=== PATIENT | female | born 1950 | race Hispanic/Latino ===

== ENCOUNTER 2022-01-10 01:10 | Emergency (ER) | payer SELFPAY ==
[2022-01-10] MEDS ORDERED: MORPHINE 4 MG/ML SYR ONE (04:19)
[2022-01-10] MEDS ORDERED: HYDROCODONE/APAP 7.5/325 MG TAB ONE (04:19)
[2022-01-10] MEDS ORDERED: NA CHLORIDE 0.9% 1,000 ML ONE (07:40)
[2022-01-10] MEDS ORDERED: ETOMIDATE 20 MG/10 ML VIAL IV ONE (07:57)
[2022-01-10] MEDS ORDERED: MIDAZOLAM HCL 2 MG/2 ML INJ ONE (07:57)
[2022-01-10] MEDS ORDERED: ONDANSETRON 4 MG/2 ML VIAL ONE (08:40)
--- NOTE | 2022-01-10 09:07 | ER ---
Nurse's Notes [facility] Name: Salma Taylor Age: 71 yrs Sex: Female : 1950 Arrival Date: 01/10/2022 Time: 01:14 Bed 2 Private MD: Diagnosis: Fall on same level, unspecified;Colles' fracture of right radius, initial encounter for closed fracture;Displaced transverse fracture of shaft of left ulna, initial encounter for closed fracture Presentation: 01/10 06:57 Chief complaint: Patient states: "I fell and hurt my left wrist". Coronavirus screen: vc1 Vaccine status: Patient reports receiving the 2nd dose of the covid vaccine. Ebola Screen: No symptoms or risks identified at this time. Initial Sepsis Screen: Does the patient meet any 2 criteria? No. Patient's initial sepsis screen is negative. Does the patient have a suspected source of infection? No. Patient's initial sepsis screen is negative. Risk Assessment: Do you want to hurt yourself or someone else? Patient reports no desire to harm self or others. Onset of symptoms was January 09, 2022. 06:57 Method Of Arrival: Ambulatory vc1 06:57 Acuity: DAVID 3 vc1 Triage Assessment: 03:00 General: Appears in no apparent distress. uncomfortable, Behavior is calm, cooperative, vc1 appropriate for age. Pain: Complains of pain in left wrist. Neuro: Level of Consciousness is awake, alert, obeys commands, Oriented to person, place, time, situation. Historical: - Allergies: 08:03 PENICILLINS; vg1 - PMHx: 08:06 Anxiety; Depressive disorder; vg1 Screenin:25 Abuse screen: Denies threats or abuse. Nutritional screening: No deficits noted. vg1 Tuberculosis screening: No symptoms or risk factors identified. Fall Risk Fall in past 12 months (25 points). No secondary diagnosis (0 pts). IV access (20 points). Ambulatory Aid- None/Bed Rest/Nurse Assist (0 pts). Gait- Normal/Bed Rest/Wheelchair (0 pts) Mental Status- Oriented to own ability (0 pts). Total Hopson Fall Scale indicates No Risk (0-24 pts). Assessment: 07:48 General: Appears in no apparent distress. uncomfortable, Behavior is calm, cooperative. vg1 Pain: Complains of pain in left wrist Pain currently is 10 out of 10 on a pain scale. Pain began around 0130. Neuro: Level of Consciousness is awake, alert, obeys commands, Oriented to person, place, time, situation. Cardiovascular: Capillary refill < 3 seconds in bilateral fingers. Respiratory: Airway is patent Respiratory effort is even, unlabored. GI: No signs and/or symptoms were reported involving the gastrointestinal system. : No signs and/or symptoms were reported regarding the genitourinary system. EENT: No signs and/or symptoms were reported regarding the EENT system. Derm: Bruising that is on left wrist. Musculoskeletal: Bony deformity noted of left wrist Swelling present in left wrist. 08:55 Reassessment: non rebreather placed due to O2 at 75% 2 L NC. vg1 09:00 Reassessment: non rebreather removed. 98% RA. vg1 09:00 Reassessment: Patient appears in no apparent distress at this time. No changes from vg1 previously documented assessment. Patient and/or family updated on plan of care and expected duration. Pain level reassessed. Patient is alert, oriented x 3, equal unlabored respirations, skin warm/dry/pink. Please refer to conscious sedation flow sheet for further information. Vital Signs: 04:29 BP 117 / 55; Pulse 68; Resp 18; Pulse Ox 100% on R/A; kd3 04:34 BP 116 / 64; kd3 07:49 BP 114 / 98; Pulse 57; Resp 12; Pulse Ox 100% on 2 lpm NC; vg1 08:01 Temp 97.6(O); Weight 68.95 kg; vg1 08:45 BP 122 / 60; Pulse 60; Resp 8; Pulse Ox 100% on 2 lpm NC; vg1 08:55 BP 156 / 72; Pulse 57; Resp 15; Pulse Ox 100% on Non-rebreather mask; vg1 09:00 BP 149 / 96; Pulse 47; Resp 17; Pulse Ox 98% on R/A; vg1 09:05 BP 134 / 86; Pulse 50; Resp 12; Pulse Ox 100% on R/A; vg1 09:10 BP 133 / 80; Pulse 54; Resp 13; Pulse Ox 98% on R/A; vg1 09:25 BP 136 / 68; Pulse 53; Resp 15; Pulse Ox 97% on R/A; vg1 09:45 BP 134 / 70; Pulse 54; Resp 15; Pulse Ox 99% on R/A; vg1 ED Course: 01:14 Patient arrived in ED. bp1 03:22 Leroy Savage MD is Attending Physician. rt 03:33 Forearm Left XRAY In Process Unspecified. EDMS 04:05 Inserted saline lock: 20 gauge in right antecubital area, using aseptic technique. kd3 06:58 Triage completed. vc1 07:18 Attending Physician role handed off by Leroy Savage MD gianfranco 07:18 Isaac Cortez MD is Attending Physician. gianfranco 07:25 Mariah Cummings, RN is Primary Nurse. vg1 07:25 Patient has correct armband on for positive identification. Placed in gown. Bed in low vg1 position. Call light in reach. Side rails up X2. Adult w/ patient. Client placed on continuous cardiac and pulse oximetry monitoring. NIBP monitoring applied. 07:55 Consent for conscious sedation explained by staff, explained by physician, signed by vg1 patient. 08:45 Assist provider with reduction of left wrist using Set up for procedure. Performed by vg1 Isaac Cortez MD Immobilized with sling, Patient tolerated well. conscious sedation. 09:03 Adelfo Jimenez MD is Referral Physician. gianfranco 09:14 Wrist Left (3 View) XRAY In Process Unspecified. EDMS 10:07 IV discontinued, intact, bleeding controlled, No redness/swelling at site. Pressure vg1 dressing applied. Administered Medications: 04:29 Drug: [place] (HYDROcodone-acetaminophen) (7.5 mg-325 mg) 1 tabs Route: PO; kd3 09:45 Follow up: Response: No adverse reaction vg1 04:29 Drug: morphine 4 mg Route: IVP; Infused Over: 4 mins; Site: right antecubital; kd3 09:46 Follow up: Response: No adverse reaction vg1 07:50 Drug: NS 0.9% 1000 ml Route: IV; Rate: 75 ml/hr; Site: right antecubital; vg1 09:45 Follow up: IV Status: Completed infusion; IV Intake: 1000ml vg1 08:44 Drug: Zofran (Ondansetron) 4 mg {Note: received VO at 0842.} Route: IVP; Site: right aa5 antecubital; 09:46 Follow up: Response: No adverse reaction vg1 08:45 Drug: Midazolam 4 mg {Note: given 2mg at 0845 and 2mg at [address] Cortez.} Route: aa5 IVP; Site: right antecubital; 09:46 Follow up: Response: No adverse reaction vg1 08:50 Drug: Etomidate 14 mg {Note: given by Dr. Cortez.} Route: IVP; Site: right aa5 antecubital; :46 Follow up: Response: No adverse reaction vg1 Medication: 10:06 VIS not applicable for this client. vg1 Intake: 09:45 IV: 1000ml; Total: 1000ml. vg1 Outcome: :06 Discharge ordered by . gianfranco 10:07 Discharged to home via wheelchair, with family. vg1 10:07 Condition: good 10:07 Discharge instructions given to patient, family, Instructed on discharge instructions, follow up and referral plans. medication usage, Demonstrated understanding of instructions, follow-up care, medications, Prescriptions given X 2. 10:07 Patient left the ED. vg1 Signatures: Dispatcher [employer] EDMS Brandi Muller, ARCHITECTURE MANAGER-C ARCHITECTURE MANAGER-Ckb Isaac Cortez MD MD cha Calderon, Audri, RN RN obey5 Mariah Cummings RN RN vg1 Salma Serna Kyli, RN RN kd3 Lakshmi Nieto RN RN vc1 Leroy Savage MD MD rt Corrections: (The following items were deleted from the chart) 08:03 08:01 68.95 kg; vg1 vg1 09:16 09:00 BP 149 / 96; Pulse 47bpm; Resp 17bpm; Pulse Ox 100% RA; vg1 vg1
--- NOTE | 2022-01-10 09:07 | EDPHYS ---
Physician Documentation [facility] Name: Salma Taylor Age: 71 yrs Sex: Female : 1950 Arrival Date: 01/10/2022 Time: :14 Bed 2 Private MD: ED Physician Isaac Cortez HPI: 01/10 02:21 This 71 yrs old Female presents to ER via Unassigned with complaints of Fall kb Injury. 02:21 Details of fall: The patient fell from an upright position, while walking. Onset: The kb symptoms/episode began/occurred just prior to arrival. Associated injuries: The patient sustained left wrist, decreased range of motion, deformity, painful injury, swelling. Severity of symptoms: At their worst the symptoms were moderate, in the emergency department the symptoms are unchanged. The patient has not experienced similar symptoms in the past. The patient has not recently seen a physician. 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 c/o pain to left wrist. Denies loc. No other injuries reported. Historical: - Allergies: 08:03 PENICILLINS; vg1 - PMHx: 08:06 Anxiety; Depressive disorder; vg1 ROS: 02:21 Constitutional: Negative for fever, chills, and weight loss. kb 02:21 MS/extremity: Positive for decreased range of motion, deformity, pain, swelling, tenderness, of the left wrist. 02:21 All other systems are negative. Exam: 02:20 Constitutional: This is a well developed, well nourished patient who is awake, alert, kb and in no acute distress. Head/Face: Normocephalic, atraumatic. ENT: Moist Mucous membranes Cardiovascular: Regular rate and rhythm with a normal S1 and S2. No gallops, murmurs, or rubs. No pulse deficits. Respiratory: Respirations even and unlabored. No increased work of breathing. Talking in full sentences Skin: Warm, dry with normal turgor. Normal color. Neuro: Awake and alert, GCS 15, oriented to person, place, time, and situation. Moves all extremities. Normal gait. Psych: Awake, alert, with orientation to person, place and time. Behavior, mood, and affect are within normal limits. 02:20 Musculoskeletal/extremity: Extremities: grossly normal except: noted in the left wrist: decreased ROM, deformity, pain, ROM: limited active range of motion, Circulation is intact in all extremities. Sensation intact. Vital Signs: 04:29 BP 117 / 55; Pulse 68; Resp 18; Pulse Ox 100% on R/A; kd3 04:34 BP 116 / 64; kd3 07:49 BP 114 / 98; Pulse 57; Resp 12; Pulse Ox 100% on 2 lpm NC; vg1 08:01 Temp 97.6(O); Weight 68.95 kg; vg1 08:45 BP 122 / 60; Pulse 60; Resp 8; Pulse Ox 100% on 2 lpm NC; vg1 08:55 BP 156 / 72; Pulse 57; Resp 15; Pulse Ox 100% on Non-rebreather mask; vg1 09:00 BP 149 / 96; Pulse 47; Resp 17; Pulse Ox 98% on R/A; vg1 09:05 BP 134 / 86; Pulse 50; Resp 12; Pulse Ox 100% on R/A; vg1 09:10 BP 133 / 80; Pulse 54; Resp 13; Pulse Ox 98% on R/A; vg1 09:25 BP 136 / 68; Pulse 53; Resp 15; Pulse Ox 97% on R/A; vg1 09:45 BP 134 / 70; Pulse 54; Resp 15; Pulse Ox 99% on R/A; vg1 Procedures: 09:02 Reduction: of the left wrist, using traction, manipulation, Immobilized with sling, gianfranco Patient tolerated well. Post reduction film - reveals improved alignment. MDM: 02:20 Data reviewed: vital signs, nurses notes. Data interpreted: Pulse oximetry: on room air kb is 100 %. Interpretation: normal. 02:35 Patient medically screened. kb 01/10 02:15 Order name: Forearm Left XRAY kb 01/10 08:45 Order name: Wrist Left (3 View) XRAY eb 01/10 07:23 Order name: Conscious Sedation; Complete Time: 07:48 ss 01/10 09:02 Order name: Splint - Sugar Tong - Forearm; Complete Time: 09:03 gianfranco 01/10 09:02 Order name: Sling; Complete Time: 10:07 gianfranco Administered Medications: 04:29 Drug: [place] (HYDROcodone-acetaminophen) (7.5 mg-325 mg) 1 tabs Route: PO; kd3 09:45 Follow up: Response: No adverse reaction vg1 04:29 Drug: morphine 4 mg Route: IVP; Infused Over: 4 mins; Site: right antecubital; kd3 09:46 Follow up: Response: No adverse reaction vg1 07:50 Drug: NS 0.9% 1000 ml Route: IV; Rate: 75 ml/hr; Site: right antecubital; vg1 09:45 Follow up: IV Status: Completed infusion; IV Intake: 1000ml vg1 08:44 Drug: Zofran (Ondansetron) 4 mg {Note: received VO at 0842.} Route: IVP; Site: right aa5 antecubital; 09:46 Follow up: Response: No adverse reaction vg1 08:45 Drug: Midazolam 4 mg {Note: given 2mg at 0845 and 2mg [place] [address] Cortez.} Route: aa5 IVP; Site: right antecubital; 09:46 Follow up: Response: No adverse reaction vg1 08:50 Drug: Etomidate 14 mg {Note: given by Dr. Cortez.} Route: IVP; Site: right aa5 antecubital; 09:46 Follow up: Response: No adverse reaction vg1 Disposition: 10:12 Co-signature as Attending Physician, Isaac Cortez MD I agree with the assessment and gianfranco plan of care. Disposition Summary: 01/10/22 09:06 Discharge Ordered Location: Home gianfranco Problem: new gianfranco Symptoms: have improved gianfranco Condition: Stable gianfranco Diagnosis - Fall on same level, unspecified gianfranco - Colles' fracture of right radius, initial encounter for closed fracture gianfranco - Displaced transverse fracture of shaft of left ulna, initial encounter for closed gianfranco fracture Followup: gianfranco - With: Private Physician - When: 2 - 3 days - Reason: Recheck today's complaints, Continuance of care, Re-evaluation by your physician Followup: gianfranco - With: Adelfo Jimenez MD - When: 2 - 3 days - Reason: Recheck today's complaints, Re-evaluation by your physician Discharge Instructions: - Discharge Summary Sheet gianfranco - Colles Fracture gianfranco - Radial Fracture gianfranco - Ulnar Fracture gianfranco - Closed Reduction for Wrist or Forearm, Care After gianfranco - Closed Reduction for Wrist or Forearm gianfranco Forms: - Medication Reconciliation Form gianfranco - Thank You Letter gianfranco - Antibiotic Education gianfranco - Prescription Opioid Use gianfranco Prescriptions: - Ibuprofen 600 mg Oral Tablet - take 1 tablet by ORAL route 3 times per day As needed take with food; 30 gianfranco tablet; Refills: 0, Product Selection Permitted - Tylenol-Codeine #3 300 mg-30 mg Oral - take 2 tablet by ORAL route every 6 hours; 24 tablet; Refills: 0, Product gianfranco Selection Permitted Signatures: Dispatcher [employer] Brandi Rojas FNP-C FNP-Isaac Mendes MD MD cha Calderon, Audri, TIMI RN aa5 Christal Lundberg RN RN ss Garcia, Victoria, RN RN vg1 Rehana Ribeiro RN RN kd3 Leroy Savage MD MD rt
--- NOTE | 2022-01-10 09:48 | RAD REPORT ---
EXAM DESCRIPTION: RAD - Wrist Left 3 View - 01/10/2022 9:12 am CLINICAL HISTORY: post reduction Pain COMPARISON: No comparisons FINDINGS: Mildly angulated distal radius and distal ulnar fractures are present. Cast material in p lace, reducing bone detail. No dislocation.
[2022-01-10 10:24] VITALS: TEMP 97.6
[2022-01-10 10:32] VITALS: BP 134/70; O2SAT 99
--- NOTE | 2022-01-11 11:30 | RAD REPORT ---
EXAM DESCRIPTION: XR Left Forearm, 2 Views CLINICAL HISTORY: The patient is 71 years old and is Female; PAIN TECHNIQUE: Two views of the left forearm. COMPARISON: No relevant prior studies available. FINDINGS: Bones/joints: Comminuted distracted fractures of the distal radius and ulnar shafts. No definite extension to the articular surfaces. No dislocation. Soft tissues: Soft tissue swelling at the wrist. IMPRESSION: Comminuted distracted fractures of the distal radius and ulnar shafts. No definite exten kayla to the articular surfaces. Electronically signed by: Lucila De La Vega MD 01/10/2022 4:07 AM GEOSCIENTIST Due to temporary technical issues with the PACS/Fluency reporting system, reports are being signed by the in house radiologists without review as a courtesy to insure prompt reporting. The interpreting radiologist is fully responsible for the content of the report
== END 2022-01-10 10:07 | disposition home or self-care (01) ==
LOC: ER 01:10
PROC: 0PSJXZZ Reposition Left Radius, External Approach (ICD-10-PCS; principal; 2022-01-10)
PROC: 0PSLXZZ Reposition Left Ulna, External Approach (ICD-10-PCS; 2022-01-10)
PROC: 2W3FX1Z Immobilization of Left Hand using Splint (ICD-10-PCS; 2022-01-10)
DX: S52.531A Colles' fracture of right radius, initial encounter for closed fracture (principal); S52.222A Displaced transverse fracture of shaft of left ulna, initial encounter for closed fracture; W01.0XXA Fall on same level from slipping, tripping and stumbling without subsequent striking against object, initial encounter; Y93.9 Activity, unspecified; Y92.9 Unspecified place or not applicable; Z88.0 Allergy status to penicillin; F41.9 Anxiety disorder, unspecified
CPT/HCPCS: 96361; 96374; 96375; 99284; J2250; J2405; J7030